=== PATIENT | female | born 1975 | race Caucasian/White ===

== ENCOUNTER 2018-08-14 08:40 | Outpatient (CLI) | payer BC ==
--- NOTE | 2018-08-14 09:52 | MMO ---
BILATERAL DIGITAL SCREENING MAMMOGRAMS: Date: 08/14/18 HISTORY: 43-year-old female presents for digital screening mammogram. COMPARISON: 04/13/17, 12/22/15, 07/26/13. FINDINGS: This patient's mammogram was interpreted with the assistance of computer-aided detection. The breasts are heterogeneously dense, which can obscure small masses. There are stable typically sherrie ign calcifications. Stable right upper outer intramammary lymph node. No direct or indirect evidence of malignancy. IMPRESSION: BIRADS 2: Benign Finding(s) Continue routine screening. POS: BRIAN
== END 2018-08-14 08:41 | disposition home or self-care (01) ==
LOC: SCSMAMMO 08:40
PROVIDERS: ATTEND Obstetrics & Gynecology
DX: Z12.31 Encounter for screening mammogram for malignant neoplasm of breast (principal)
CPT/HCPCS: 77067

== ENCOUNTER 2020-05-27 06:17 | Outpatient (CLI) | payer BC ==
[2020-05-28 12:06] LABS: SARS-CoV-2 MS2 Positive; SARS-CoV-2 N Gene Negative; SARS-CoV-2 S Gene Negative; SARS-CoV-2 by NAA Not Detected (NotDetected); SARS-CoV-2 orf1ab Negative
== END 2020-05-27 06:18 | disposition home or self-care (01) ==
LOC: LABBT 06:17
PROVIDERS: ATTEND Plastic Surgery
DX: Z01.812 Encounter for preprocedural laboratory examination (principal); N62 Hypertrophy of breast; Z20.828 Contact with and (suspected) exposure to other viral communicable diseases
CPT/HCPCS: 87635; U0003

== ENCOUNTER 2020-06-01 07:30 | Day surgery (SDC) | payer BC ==
[2020-05-28 12:44] VITALS: BMI 30.1
[2020-06-01] MEDS ORDERED: Heparin 5,000 UNITS/ML VIAL ONE (08:44)
[2020-06-01] MEDS ORDERED: Bupivacaine 0.25% HCL 30 ML VIAL ONE (10:16)
[2020-06-01] MEDS ORDERED: Gentamicin 80 MG/2 ML VIAL ONE (10:16)
[2020-06-01] MEDS ORDERED: EPINEPHrine 1 MG/ML AMP ONE (10:16)
[2020-06-01] MEDS ORDERED: Dexamethasone 20 MG/5 ML VIAL ONE ×2 (10:16→14:11)
[2020-06-01] MEDS ORDERED: Fentanyl 100 MCG/2 ML VIAL ONE ×3 (10:20→15:03)
[2020-06-01] MEDS ORDERED: Lidocaine 1% (PF) 30 ML VIAL ONE (10:20)
[2020-06-01] MEDS ORDERED: Famotidine/PF 20 mg/2ml Vial ONE (10:21)
[2020-06-01] MEDS ORDERED: SUGAMMADEX SODIUM 200 MG/2 ML VIAL ONE (10:31)
[2020-06-01] MEDS ORDERED: Ondansetron PF 4 MG/2 ML Vial ONE (14:11)
[2020-06-01] MEDS ORDERED: PROPOFOL 200 MG/20 ML VIAL ONE (14:11)
[2020-06-01] MEDS ORDERED: ePHEDrine 50 MG/ML VIAL ONE (14:11)
[2020-06-01] MEDS ORDERED: Ketorolac Tromethamine 30 MG/ML VIAL ONE (14:11)
[2020-06-01] MEDS ORDERED: Lidocaine 1% PF 5 ML VIAL ONE (14:11)
[2020-06-01] MEDS ORDERED: Rocuronium Bromide 10 MG/ML (10ML VIAL) ONE (14:11)
[2020-06-01] MEDS ORDERED: Metoclopramide HCl 10 MG/2 ML VIAL ONE (14:11)
[2020-06-01] MEDS ORDERED: PHENYLEPHRINE-NS 100 MCG/ML 10 ML SYRINGE ONE (14:11)
--- NOTE | 2020-06-01 21:46 | OP ---
DATE OF PROCEDURE: 06/01/2020 PREOPERATIVE DIAGNOSIS: Macromastia. POSTOPERATIVE DIAGNOSIS: Macromastia. DESCRIPTION OF PROCEDURE: Following induction of adequate anesthesia, the patient was prepped and draped in usual sterile fashion in supine position. Attention was first turned to the larger right breast. The patient desired to be a C cup bordering on B cup. Modified Oneil pattern incision was made. The nipple was circumcised around a 42 mm nipple sizer. The skin flaps were elevated superiorly, medially, and laterally. The pedicle was sculpted to protect the sensibility and viability. The pedicle was trimmed down to the point no further excision could be done without jeopardizing the viability of the nipple. The breast was deemed to still be too big. It was, therefore, harvested as a nipple graft. Pedicle was further trimmed to appropriate size. The field was copiously irrigated and inspected for meticulous hemostasis prior to securing the pedicle to the chest wall superiorly to provide upper pole fullness and central fullness. This was done with 2-0 PDS suture. The inverted T-closure was achieved with 2-0 PDS suture and 3-0 Monocryl suture. The nipple was inset into 42 mm de-epithelialized nipple defect using interrupted running 3-0 Prolene suture. A similar procedure was done on each side. The patient tolerated the procedure well. Job ID: [id number]
== END 2020-06-01 16:56 | disposition home or self-care (01) ==
LOC: SDC 07:30
PROVIDERS: ATTEND Plastic Surgery
PROC: 0HBV0ZZ Excision of Bilateral Breast, Open Approach (ICD-10-PCS; principal; 2020-06-01)
DX: N62 Hypertrophy of breast (principal); I10 Essential (primary) hypertension; E78.5 Hyperlipidemia, unspecified; E03.9 Hypothyroidism, unspecified; Z79.899 Other long term (current) drug therapy
CPT/HCPCS: 88305; J0171; J0690; J1100; J1580; J1644; J1885; J2001; J2405; J2704; J2765; J3010; J3370; J3490; S0020; S0028